=== PATIENT | male | born 1955 | race Caucasian/White ===

== ENCOUNTER → 2016-08-21 | Outpatient (CLI) | payer BC | END | disposition home or self-care (01) | LOC: PCVCIMAG 08:39 | PROVIDERS: ATTEND Internal Medicine Cardiovascular Disease | DX: I10 Essential (primary) hypertension (principal); E78.00 Pure hypercholesterolemia, unspecified; B19.20 Unspecified viral hepatitis C without hepatic coma | CPT/HCPCS: 93306; 93351; G0463 ==

== ENCOUNTER → 2018-02-24 | Outpatient (CLI) | payer BC ==
--- NOTE | 2018-02-24 13:07 | PCVCIMAG ---
APPROVED REPORT Imaging Protocol: Rest Tc-99m/Stress Tc-99m 1 day Study performed: 02/24/2018 10:36:22 Indication: Chest pain, Dyspnea on Exertion Patient Location: Out-Patient Stress Nurse: Monica Wallace RN NM Tech:Sonny Marshall NMTCB Ht: 5 ft 9 in Wt: 175 lbs BSA: 1.95 m2 HR: 62 bpm BP: 121/78 mmHg BMI: 25.84 Rhythm: Sr, NS T wave Abnormalities Medical History Medical History: Age, Hyperlipidemia, HTN, Former Smoker Medications: Atorvastatin, Bentyl, Synthroid, Protonix, Tamsulosin, Losartan Allergies: No known drug allergies Exercise History: Indeterminate Physical Disabilities: Foot pain Resting Data Rest SPECT myocardial perfusion imaging was performed in supine position 45 minutes following the intravenous injection of 10.8 mCi of Tc-99m Sestamibi. Time of rest injection: 1000 Date: 02/24/2018 Administration Route: IV Administration Site: Right AC Exercise Stress At peak stress, the patient was injected intravenously with 32.9mCi of Tc-99m Sestamibi. Time of stress injection: 1130 Date: 02/24/2018 Administration Route: IV Administration Site: Right AC Heart Rate at time of stress injection: 144 bpm. Patient continued to exercise for 7.5 minute(s). Gated Stress SPECT was performed 45 minutes after stress injection. The images were gated to evaluate regional wall motion and calculate left ventricular ejection fraction. Stress Test Details Stress Test: Exercise stress testing was performed using a Kun protocol. HRMax Heart Rate (APMHR): 157 bpm Resting HR: 62 bpmTarget HR (85% APMHR): 133 bpm Max HR Achieved: 144 bpm % of APMHR: 91 Recovery HR: 89 bpm BP Resting BP: 121/78 mmHg Recovery BP: 131/73 mmHg BP response to stress: Normal blood pressure response to stress. ECG Resting ECG: Sinus Rhythm, nonspecific ST-T abnormalities Stress ECG: Sinus Tachycardia, NSSTT changes ST Change: Horizontal ST depression Maximum ST Deviation: 1.2 mm Arrhythmia: VPC's Recovery ECG: Sinus Rhythm, nonspecific ST-T abnormalities Clinical Reason for Termination: Maximal effort Stress Symptoms: Dyspnea, Fatigue Exercise duration: 7 min 40 sec Exercise capacity: 10.10 METs Overall Exercise Capacity for Age: Average Scale: Sedentary Angina Score: None Symptoms resolved during recovery. Stress ECG Conclusion Blackwell Treadmill Score is 1.0 which is Moderate risk. Study Quality Study: Good Artifact: Mild Diaphragmatic artifact Study Data Post stress, the left ventricular ejection was 78%.. SSS: 0 SRS: 0 SDS: 0 TID = 0.78. Perfusion There is a small area of mildly reduced uptake in the basal segment of the inferior wall which is seen on the stress images as well as the resting images. This area thickens and moves normally and is most consistent with attenuation artifact. Wall Motion Normal left ventricular wall motion. Nuclear Conclusion ECG Findings: equivocal Clinical Findings: non-diagnostic Nuclear Findings: negative for ischemia Exercise Capacity: not assessed Left Ventricular Function: normal Risk Study: low This study is of low probability for inducible ischemia or prior infarct. Normal global and segmental LV systolic function. Artifact: Mild Diaphragmatic artifact.
== END | disposition home or self-care (01) ==
LOC: PCVCIMAG 10:06
PROVIDERS: ATTEND Internal Medicine Cardiovascular Disease
DX: I10 Essential (primary) hypertension (principal); R07.9 Chest pain, unspecified; R06.09 Other forms of dyspnea; E78.5 Hyperlipidemia, unspecified; Z87.891 Personal history of nicotine dependence
CPT/HCPCS: 78452; 93017; A9500

== ENCOUNTER → 2019-02-09 | Outpatient (CLI) | payer BC ==
--- NOTE | 2019-02-09 13:27 | PCVCIMAG ---
APPROVED REPORT Study performed: 02/09/2019 12:40:17 EXAM: Comprehensive 2D, Doppler, and color-flow Echocardiogram Patient Location: Echo lab Status: routine BSA: 1.89 HR: 53 bpmBP: 122/82 mmHg Rhythm: Bradycardia Other Information Study Quality: Adequate Risk Factors: Cardiac Risk Factors: HTN, Hyperlipidemia Indications Dyspnea Chest Pain 2D Dimensions IVSd: 13.11 (7-11mm) LVDd: 40.50 mm PWd: 11.77 (7-11mm)Ascending Ao: 39.84 (22-36mm) LVDs: 29.59 (25-40mm) Left Atrium: 35.46 (27-40mm) Aortic Root: 38.29 mm LV Single Plane 4CH: 60.35 % LV Single Plane 2CH: 63.07 % Biplane EF: 61.0 % Volumes Left Atrial Volume (Systole) Single Plane 4CH: 92.56 mLSingle Plane 2CH: 62.41 mL LA ESV Index: 41.00 mL/m2 Aortic Valve AoV Peak Black.: 1.57 m/s AO Peak Gr.: 9.88 mmHgLVOT Max P.08 mmHg LVOT Max V: 1.33 m/s Mitral Valve E/A Ratio: 1.4 MV Decel. Time: 310.21 ms MV E Max Black.: 0.94 m/s MV A Black.: 0.67 m/s IVRT: 96.89 ms Pulmonary Valve PV Peak Black.: 1.21 m/sPV Peak Gr.: 5.83 mmHg Pulmonary Vein P Vein S: 0.38 m/sP Vein A: 0.33 m/s P Vein D: 0.53 m/sP Vein A Dur.: 145.3 msec P Vein S/D Ratio: 0.72 Tricuspid Valve TR Peak Black.: 2.93 m/s TR Peak Gr.: 34.42 mmHg Left Ventricle The left ventricle is normal size. There is normal LV segmental wall motion. Mild concentric left ventricular hypertrophy. Left ventricular systolic function is normal. The left ventricular ejection fraction is within the normal range. LVEF is 60-65%. Grade II - pseudonormal filling dynamics. Right Ventricle The right ventricle is normal size. The right ventricular systolic function is normal. Atria Left atrium is mildly dilated. The right atrium size is normal. Aortic Valve The aortic valve is normal in structure. No aortic regurgitation is present. There is no aortic valvular stenosis. Mitral Valve The mitral valve is normal in structure. Posterior leaflet prolapse. Mild mitral regurgitation. No evidence of mitral valve stenosis. Tricuspid Valve The tricuspid valve is normal in structure. Mild tricuspid regurgitation with PAP of 41 mmHg. Pulmonic Valve The pulmonary valve is normal in structure. Mild pulmonic regurgitation. Great Vessels Aortic root is borderline dilated. 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 IVC is normal in size and collapses >50% with inspiration. Pericardium There is no pericardial effusion. <Conclusion> The left ventricle is normal size. Mild concentric left ventricular hypertrophy. Left ventricular systolic function is normal. Grade II - pseudonormal filling dynamics. The right ventricle is normal size. Left atrium is mildly dilated. The aortic valve is normal in structure. Mild mitral regurgitation. Mild tricuspid regurgitation with PAP of 41 mmHg.
== END | disposition home or self-care (01) ==
LOC: PCVCIMAG 12:20
PROVIDERS: ATTEND Internal Medicine Cardiovascular Disease
DX: I08.1 Rheumatic disorders of both mitral and tricuspid valves (principal); R06.00 Dyspnea, unspecified
CPT/HCPCS: 93306